=== PATIENT | female | born 1930 | race Hispanic/Latino ===

== ENCOUNTER 2020-04-10 18:33 | Emergency (ER) | payer OTHER ==
[~2020-04-10] VITALS: Ht 147.3 cm; Wt 62.6 kg
[2020-04-10] MEDS ORDERED: HYDROCODONE/APAP 7.5MG-325MG 1 EA TAB PO PRN (19:15)
--- NOTE | 2020-04-10 20:24 | Emergency Department Note ---
History of Present Illnes History of Present Illness Chief Complaint: Back Pain History of Present Illness This is a 89 year old female arrives to the ED requesting to be hospitalized for 3 days for her back pain. Patient initially Insisting that she needs to be hospitalized but would not specify why. Patient later admitted to having back pain after a fall a few days ago. Patient states since the [facility] received x-rays and was discharged home. Patient arrived via EMS. 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 Any updates have been documented here. Past Medical History Recent Fever: No Clinical Suspicion of Infectio: No New/Unexplained Change in Ment: No Social History Smoking Cessation: Never Smoker Review of Systems Review of Systems Constitutional: Reports no symptoms EENTM: Reports no symptoms Cardiovascular: Reports no symptoms Respiratory: Reports no symptoms Gastrointestinal: Reports no symptoms Genitourinary: Reports no symptoms Musculoskeletal: Reports as per HPI, Reports back pain Integumentary: Reports no symptoms Neurological: Reports no symptoms Psychological: Reports no symptoms Endocrine: Reports no symptoms Hematological/Lymphatic: Reports no symptoms Physical Exam Related Data Allergies: Coded Allergies: codeine (Verified Allergy, Mild, STOMACH UPSET, 03/30/10) Triage Vital Signs Vital Signs Date Time Temp Pulse Resp B/P (MAP) Pulse Ox O2 Delivery O2 Flow Rate FiO2 04/10/20 19:01 98.7 91 18 213/97 97 Room Air Vital signs reviewed: Yes Physical Exam CONSTITUTIONAL Constitutional: Present well-developed, Present well-nourished HENT HENT: Present normocephalic, Present atraumatic, Present oropharynx clear/moist, Present nose normal HENT L/R: Present left ext ear normal, Present right ext ear normal EYES Eyes: Reports PERRL, Reports conjunctivae normal NECK Neck: Present ROM normal PULMONARY Pulmonary: Present effort normal, Present breath sounds normal CARDIOVASCULAR Cardiovascular: Present regular rhythm, Present heart sounds normal, Present capillary refill normal, Present normal rate GASTROINTESTINAL Abdominal: Present soft, Present nontender, Present bowel sounds normal GENITOURINARY Genitourinary: Present exam deferred SKIN Skin: Present warm, Present dry MUSCULOSKELETAL Musculoskeletal: Present tenderness; Absent deformity NEUROLOGICAL Neurological: Present alert, Present oriented x 3, Present no gross motor or sensory deficits PSYCHOLOGICAL Psychological: Present mood/affect normal, Present judgement normal Results Imaging Imaging results reviewed: Yes Impressions IMPRESSION: Acute-appearing compression fracture of the L1 vertebral body with approximately 60% vertebral body height loss. No significant retropulsion. Consider interventional radiology consultation for possible vertebral augmentation. Signed by: Ken Morrow MD on 04/10/2020 9:27 PM Imaging Comments IMPRESSION: Acute-appearing compression fracture of the L1 vertebral body with approximately 60% vertebral body height loss. No significant retropulsion. Consider interventional radiology consultation for possible vertebral augmentation. Signed by: Ken Morrow MD on 04/10/2020 9:27 PM Assessment & Plan Medical Decision Making MDM 89-year-old well-appearing female arrives the ED physician and being admitted for back pain. Patient's x-rays were unremarkable. Patient deficits. Patient encouraged to follow-up with outpatient pain management. Pain was controlled in the emergency department. The patient length about no indication for hospital admission. Patient expressed understanding. Assessment & Plan Final Impression: (1) Back pain Depart Disposition: HOME, SELF-CARE Last Vital Signs Date Time Temp Pulse Resp B/P (MAP) Pulse Ox O2 Delivery O2 Flow Rate FiO2 04/10/20 19:01 98.7 91 18 213/97 97 Room Air Medications in the ED Acetaminophen/ Hydrocodone Bitart 1 ea ONCE PRN PO MODERATE PAIN (4-6); Start 04/10/20 at 19:15; Stop 04/17/20 at 19:14 SHIRA ORO DO Apr 10, 2020 20:24
--- NOTE | 2020-04-10 21:30 | Diagnostic Imaging Report ---
PELVIS AP 1-2 VIEWS, SP LUMBAR, COMPLETE MIN 4VW, THORACIC SP 3V - 3 views HISTORY: Pain. COMPARISON: None available. FINDINGS: Diffuse osseous demineralization. No hip fracture. Acute-appearing compression fracture of the L1 vertebral body with approximately 60% superior endplate height loss. No significant retropulsion. No additional compression fracture of the thoracolumbar spine. 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 Soft tissues are unremarkable. IMPRESSION: Acute-appearing compression fracture of the L1 vertebral body with approximately 60% vertebral body height loss. No significant retropulsion. Consider interventional radiology consultation for possible vertebral augmentation. Signed by: Ken Morrow MD on 04/10/2020 9:27 PM
== END 2020-04-10 22:14 | disposition home or self-care (01) ==
LOC: ER 19:12
DX: M54.5 Low back pain (principal); M54.6 Pain in thoracic spine; W19.XXXA Unspecified fall, initial encounter
CPT/HCPCS: 72072; 72110; 72170; 99282